=== PATIENT | male | born 1950 | race Caucasian/White ===

== ENCOUNTER 2024-05-31 11:16 | Emergency (ER) | payer BC ==
[~2024-05-31] VITALS: Ht 167.6 cm; Wt 81.6 kg
[2024-05-31 11:19] VITALS: BP_SYST 147; RESP 17; TEMP 97.8; O2SAT 96
[2024-05-31] MEDS: LIDOCAINE 1% 10 MG/ML, 20 ML MDV INJ ONE (11:45)
[2024-05-31] MEDS: BACITRACIN 1 GM OINT TP ONE (12:06)
[2024-05-31] MEDS: DIPHTH,PERTUSS(ACELL),TET VAC 0.5 ML VIAL (Tdap) I.M. ONE (12:06)
[2024-05-31] MEDS: MORPHINE 4 MG INJ. 4 MG/ML VIAL IM ONE (12:07)
[2024-05-31] MEDS ORDERED: IBUP-1971 PO (13:18)
[2024-05-31] MEDS ORDERED: TRAM50TA2 PO (13:44)
[2024-05-31 14:02] VITALS: BP_SYST 147; RESP 17; TEMP 97.8; O2SAT 96
== END 2024-05-31 14:01 | disposition home or self-care (01) ==
LOC: SED 11:16
DX: S92.411A Displaced fracture of proximal phalanx of right great toe, initial encounter for closed fracture (principal); S61.214A Laceration without foreign body of right ring finger without damage to nail, initial encounter; W26.8XXA Contact with other sharp object(s), not elsewhere classified, initial encounter; Y93.89 Activity, other specified; Y92.89 Other specified places as the place of occurrence of the external cause; Y99.8 Other external cause status
CPT/HCPCS: 99284; 73130; 73630; 90715; 96372; 90471; 12002; J2270; J2001